=== PATIENT | male | born 1950 | race Caucasian/White ===

== ENCOUNTER 2022-03-02 05:09 | Inpatient (IN) ==
--- NOTE | 2022-02-02 08:46 | History & Physical Report ---
Date of Service February 02, 2022 date of surgery: 03/02/22 Procedure: Right Total Knee Arthroplasty Surgeon: Andi Jara Assessment & Plan (1) Arthritis of right knee: Plan: Risks and benefits of procedure discussed in detail today, patient would like to proceed with a right total knee replacement at [facility] as scheduled. will obtain medical clearance as well as cardiac clearance prior to surgery as well as obtain PATs at [facility]. Will place on Xarelto x 1 month post op, f/u 2 weeks post op for routine post-operative care and x-ray, sooner if having any problems. At this point in time, has failed conservative measures and would like to proceed with surgical intervention. he is not OPJ candidate, has remote cardiac history and lives alone. will need rehab vs SNF at time of discharge. The risks and benefits have been discussed including, but not limited to, risk of infection, nerve injury, stiffness, loss of motion, failure to improve, etc. Reasonable outcomes and options of treatment were discussed. An explanation of appropriate alternatives to the procedure that may be advantageous were discussed and their risks and benefits, as well as the risks and benefits of not proceeding with treatment. I offered to answer any additional inquiries concerning the treatment involved. All the patient's questions were answered. The patient is agreeable, understanding of the treatment plan and alternatives, and wishes to proceed with the treatment plan. History of Present Illness Chief Complaint: Right knee pain Primary Care Provider: NO PCP Ortiz is a 71 year old male who complains of right knee pain, presents for pre- op evaluation prior to a right total knee replacement by Dr Jara at [facility]. He complains of pain, decreased range of motion, instability and stiffness in his right knee. Currently the patient states that the symptoms are moderate-severe and rated as 6/10. The pain is described as aching, sharp and throbbing. The symptoms occur continuously. The symptoms are aggravated by ascending stairs, daily activities, first steps while awake walking. Prior NSAIDs include IBU and Aleve. He has been treated with previous visco and cortisone injections in the past without much relief. Allergies Allergy/AdvReac Type Severity Reaction Status Date / Time No Known Allergies Allergy Verified 10/23/21 07:32 Home Medications Medication Instructions Recorded Confirmed Type aspirin 81 mg tablet,delayed 81 mg PO QAM 10/23/21 10/23/21 History release flaxseed 1,000 mg capsule 1,000 mg PO QAM 10/23/21 10/23/21 History multivitamin 1 tab PO QAM 10/23/21 10/23/21 History omega-3 fatty acids 1,000 mg PO QAM 10/23/21 10/23/21 History psyllium husk 0.4 gram capsule 0.8 g PO QAM 10/23/21 10/23/21 History (Metamucil) simvastatin 40 mg tablet 40 mg PO HS 10/23/21 10/23/21 History Past Med/Surg History Medical History CAD (coronary artery disease) Stents x3 (2012), Follows with Dr. Manny Faria/[facility] Diabetes Hx of blood clots ? DVT vs PE > Post-op knee surgery (07/2020) > was on AC x 1 month Hyperlipidemia Surgical History History of colonoscopy History of heart artery stent Stents x3 (2012) History of lumbar surgery History of total knee replacement Left Hx of inguinal hernia repair Hx of prostate biopsy To receive results on 10/28/21 per pt Social History Smoking Status: Former smoker Second Hand Exposure: No; Hx Alcohol Use: Yes Alcohol type: beer Hx Substance Use: No Preferred Language: Tuvaluan Communication Ability: Effective Software Verification Engineer Required: No Beliefs That Will Affect Care: None Current Living Situation: Alone Feels Safe at Home: Yes Assistive Devices: Glasses Review of Systems Review of Systems: All systems reviewed & are unremarkable except as noted in HPI & below Constitutional: no fever, no chills and no sweats Respiratory: no cough and no dyspnea Cardiovascular: no chest pain, no dyspnea and no orthopnea Gastrointestinal: no abdominal pain, no nausea and no vomiting Musculoskeletal: as per Subjective / HPI Physical Exam Physical Exam: HT: 6 ft WT: 200 lb BP: 154/96 Pulse: 94 Constitutional: WD/WN, vitals as above no acute distress Respiratory: normal respiratory effort, lungs clear to auscultation no respiratory distress, no labored breathing and does not use accessory muscles Cardiovascular: RRR, no murmur, no edema Gastrointestinal (Abdomen): normal bowel sounds, soft, nontender, no hepatosplenomegaly Musculoskeletal: Knee: + knee abnormal to inspection (Right knee: ), + effusion (+1 effusion), + limited ROM of knee (ROM 0/3/110), + knee ROM with crepitation, + joint line tenderness (medial joint line) and + Beulah's sign positive; no deformity, no skin erythema, no ecchymosis, no valgus laxity, no varus laxity, anterior drawer test negative, Rosa's sign negative and pivot shift test negative Results & Data Results & Data ([facility]) Diagnostic Findings Right Knee X-ray: Right knee series showing advanced degenerative changes to the right knee, narrowing of the medial compartment and patello-femoral joint with patellar spurring noted, findings showing joint space narrowing of the medial compartment and patello-femoral joint, osteophyte formation and subchondral sclerosis noted. overall varus alignment. no acute bony pathology noted.
--- NOTE | 2022-02-26 09:44 | Anesthesiology Consultation ---
Date of Service February 26, 2022 Assessment & Plan (1) Encounter for pre-operative examination: - check BSG am DOS. Patient last seen by cardiology 10/28/2021 =recent EKG reviewed.Based on the revised cardiac risk index for preoperative risk (Travon criteria), this patient is class II with perioperative risk of major cardiac event under general anesthesia of 0.9%. I think the patient is at low risk for the proposed procedure. The patient's aspirin can be withheld up to 1 week. The patient's cardiac care has been optimized in anticipation of surgery. 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 Echocardiogram 10-24-2020= normal LV size with increased wall thickness and LVH. LV function 62%. Grade 1 LV diastolic dysfunction. Normal-sized RV and function. Normal size atria and dilated aortic root at 4.3 cm. High suspicion for anterior mitral valve prolapse seen for patient's age. Trace to mild MR. Mild TR. Mild pulmonary hypertension at 37.09 mmHg. Preop PCP clearance 11/03/2021= patient has been cleared by cardiac standpoint by cardiology.History of bilateral PEs with last left TKA in August 2020was treated with Eliquis for 3 months. 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 Declines referral to pulm.Will order preop CXR. Preop testing ordered. Per addendum to PCP note 11/13/21= Hgb A1C 6.8- now consistent with DM. BSG 124. CBC and coags- ok. CXR reviewed.Pt is considered an acceptable risk for proposed procedure.Now with new [id number] 6.8will need close monitoring of BS during pre-, intra and postop periods. History of PE with last knee surgerywill need postop DVT prophylaxistolerated Eliquis well in the past. -Orthopedic Surgery office visit(10/26; Binu Lenz PAC): "he isnotOPJ candidate, has remote cardiac history and lives alone. will need rehab vs SNF at time of discharge." -ASA instructionsper surgeon/prescriber - COVID screening: Per proof inspector on 02/25/2022: Travel screen negative, no known COVID-19 positive contacts or current COVID-19 related symptoms in past 2 weeks. Patient vaccinated. Surgeon arranging preop COVID testing, scheduled 02/26/2022. Awaiting results. Chart Review Chart Review: Acceptable Risk for Surgery and Patient NOT seen in Pre Admission Testing History Surgery Operation Date: 03/02/22 10:45 Proposed Procedures p Total Knee Arthroplasty - Andi Jara DO Surgery re-scheduled since 10/26/2021 anesthesia review. Height/Weight Height: 6 ft Weight: 86.183 kg Allergies Allergy/AdvReac Type Severity Reaction Status Date / Time No Known Allergies Allergy Verified 02/25/22 13:50 Medications Home Medications Medication Instructions Recorded Confirmed Last Taken aspirin 81 mg tablet,delayed 81 mg PO QAM 10/23/21 02/25/22 Unknown release flaxseed 1,000 mg capsule 1,000 mg PO QAM 10/23/21 02/25/22 Unknown multivitamin 1 tab PO QAM 10/23/21 02/25/22 Unknown omega-3 fatty acids 1,000 mg PO QAM 10/23/21 02/25/22 Unknown psyllium husk 0.4 gram capsule 0.8 g PO QAM 10/23/21 02/25/22 Unknown (Metamucil) simvastatin 40 mg tablet 40 mg PO HS 10/23/21 02/25/22 Unknown Past Medical History Medical History (Updated 02/26/22 @ 09:43 by Dinora Viera PA-C) CAD (coronary artery disease) Stents x3 (2012), Follows with Dr. Manny Faria/[facility] Diabetes DIET/EXERCISE MANAGEMENT PER PCP NOTE Hx of blood clots ? DVT vs PE > Post-op knee surgery (07/2020) > was on AC x 1 month Hyperlipidemia Pulmonary hypertension mild, 37 mmHg 2019 echo Tricuspid regurgitation mild on 2019 echo Past Family History Family History Other No known health problems Past Surgical History Surgical History History of colonoscopy History of heart artery stent Stents x3 (2012) History of lumbar surgery History of total knee replacement Left Hx of inguinal hernia repair Hx of prostate biopsy BENIGN Social History Smoking Status: Former smoker Do You Dip or Chew Tobacco: No Smoking End Date: AGE 44 YRS Hx Alcohol Use: Yes Alcohol type: beer alcohol intake frequency: a few times a week Hx Substance Use: No substance use type: does not use Testing Laboratory Results 02/02/2022 WBC: 6.1 H/H: 16/52 PLATELETS: 245 SODIUM: 139 POTASSIUM: 4.4 CHLORIDE: 101 CO2: 28 BUN: 15 CREATININE: 0.7 GLUCOSE: 123 PT: 12 PTT: 32 INR: 1.1 UA: Yellow, hazy, negative HGB A1C: 6.5 Electrocardiogram Date: 10/28/21 sinus rhythm, rate 90 bpm "Old infarction" Unconfirmed report Chest X-Ray Date: 11/04/21 No significant interval change since 09/01/2020. Stable upper lobe predominant pulmonary fibrosis. The lungs appear otherwise clear. Echocardiogram Date: 10/24/20 EF 62% Grade I diastolic dysfunction Mitral valve area 3.2 cm squared with high suspicion for anterior mitral valve prolapse seen for patient's age Trace to mild MR Mild TR Mild pulmonary hypertension at 37 mmHg
[2022-03-02] MEDS ORDERED: CeleBREX 200 MG CAP PO SCH (06:00)
[2022-03-02] MEDS ORDERED: ACETAMINOPHEN 500 MG TAB PO SCH (06:00)
[2022-03-02] MEDS ORDERED: ceFAZolin 2000MG 2,000 MG/15 ML SYR IV SCH (06:00)
[2022-03-02] MEDS ORDERED: LR 500ML BOLUS, THEN 15ML/HR IV SCH (06:00)
[2022-03-02] MEDS ORDERED: FAMOTIDINE 20 MG TAB PO SCH (06:00)
[2022-03-02] MEDS ORDERED: TRANEXAMIC ACID 1,000 MG **IV Pre-op IV SCH (06:00)
[2022-03-02] MEDS ORDERED: dexAMETHasone 4 MG TAB PO SCH (06:00)
[2022-03-02] MEDS ORDERED: GABAPENTIN 300 MG CAP PO SCH (06:00)
[2022-03-02] MEDS ORDERED: ROPIVACAINE 0.5% HCL/PF 150 MG, BUPIVACAINE 0.75% MPF 20 ML, EPINEPHrine 30MG/30ML (OR ... INSTIL SCH (06:00)
[2022-03-02] MEDS ORDERED: oxyCODONE HCL 10 MG TABCR (OxyCONTIN) PO SCH (06:00)
[2022-03-02] MEDS ORDERED: METOCLOPRAMIDE HCL 10 MG TABLET PO SCH (06:00)
[2022-03-02] MEDS ORDERED: TRANEXAMIC ACID 1,000 MG **IV Intra-op IV SCH (06:00)
[2022-03-02] MEDS ORDERED: BUPIVACAINE 0.5 % 5 MG/1 ML PF 10ML VIAL ONE (06:33)
[2022-03-02] MEDS ORDERED: ROPIVACAINE 0.5% 5 MG/ML 30 ML VIAL ONE (06:33)
[2022-03-02] MEDS ORDERED: PROPOFOL IV EMULSION 10 MG/ML 20 ML VIAL IV ONE ×3 (06:41→06:46)
[2022-03-02] MEDS ORDERED: LIDOCAINE 2% 2 ML VIAL/AMP(20MG/ML) INFIL ONE (06:41)
[2022-03-02] MEDS ORDERED: MIDAZOLAM HCL 1 MG/ML 2ML VIAL ONE (06:42)
[2022-03-02] MEDS ORDERED: fentaNYL citrate 100 MCG/2 ML VIAL ONE ×2 (06:42→09:59)
[2022-03-02] MEDS ORDERED: ORTHO JOINT ANESTHETIC ONE (06:56)
[2022-03-02] MEDS ORDERED: ONDANSETRON INJ 2 MG/ML 2 ML VIAL IV PRN ×2 (06:57→10:38)
[2022-03-02] MEDS ORDERED: ATROPINE SULFATE 0.1 MG/ML 10ML SYR IV PRN (06:57)
[2022-03-02] MEDS ORDERED: fentaNYL citrate 100 MCG/2 ML VIAL IV PRN (06:57)
[2022-03-02] MEDS ORDERED: LABETALOL HCL IV 5 MG/ML 20ML IV PRN (06:57)
[2022-03-02] MEDS ORDERED: ePHEDrine sulfate 50 MG/ML AMP IV PRN (06:57)
--- NOTE | 2022-03-02 07:19 | History & Physical Bridge Note ---
Date of Service March 02, 2022 History & Physical Bridge Note I have examined the patient, reviewed the History & Physical and in the interval since the performance of the History & Physical I have noted the following changes of clinical significance: no changes noted
--- NOTE | 2022-03-02 08:32 | Operative Report ---
Post Operative Report Pre & Post Diagnosis Operation Date: 03/02/22 07:15 Pre-Op Diagnosis: Right Knee osteoarthritis Post-Op Diagnosis: Right Knee osteoarthritis I identified the patient and participated in the time-out.: Yes Procedure Operation Date: 03/02/22 07:15 Actual Procedures p Right Total Knee Arthroplasty(Right) utilizing [employer] patient-matched journey 2 total knee arthroplasty size femur 6 tibia 6 polythirteen patella 32 isabel- Andi Jara DO Surgeon Andi Jara DO Commissions Coordinator ÁNGELA Fulton Estimated Blood Loss 5 Findings Consistent with Post-Op Diagnosis Patient presents with severe end-stage tricompartmental DJD with a 10 degree flexion contracture right knee varus alignment subchondral sclerosis marginal osteophytes moderate to large effusion eburnated [id number] varus alignment Specimens Bone and cartilage Drains Medium bore Hemovac Anesthesia Type MAC Spinal Regional Complications none Disposition Accompanied Patient To Recovery: No Disposition: Recovery Room Indications Patient presents with severe end-stage DJD right knee no response to conservative management above intraoperative findings no time surgery patient fell attempt a corticosteroid injection viscosupplementation relative rest activity modification bracing physical therapy. Description of Procedure After proper prepping and draping of the Right lower extremity anterior midline incision was made over the region of the extensor extensor mechanism after meticulous hemostasis was obtained and maintained in subcutaneous tissues a medial parapatellar incision was made The patella was subluxed lateralward the medial lateral gutter were cleaned from any hypertrophic synovitis and scar tissue of the distal femoral block was placed and the distal femoral osteotomy cut was made subsequently the chamfers anterior and posterior osteotomy cuts were made utilizing the 4-in-1 block the tibia was subsequently subluxed anteriorward medial and ateral meniscal remnants were excised in their entirety remnants of the anterior and posterior cruciate ligaments were excised in their entirety excellent exposure of the proximal tibia was obtained the tibial osteotomy guide was placed on the proximal tibial osteotomy cut was made once again the knee was irrigated with copious amounts of sterile saline solution the patella was subsequently everted lateralward thickened scar tissue around the patella was removed the patella was subsequently cut utilizing a freehand technique and was drilled prepared for final preparation and placement of patella socially flexion-extension gaps were checked and the equal and symmetric trials were placed to the appropriate femoral and tibial trials with poly-spacer being placed for equal flexion and extension gaps and full range of motion including extension to 0 and flexion to 140 the trial components after having been taken to recovery range of motion was subsequently removed meticulous hemostasis was obtained and maintained subsequently a knee block injection of joint cocktail including ropivacaine 0.5% 150 mg. Bupivacaine 0.5% epinephrine 1-200,030 mL's toradol 30 mg dexamethasone 4 mg ketamine 10 mg clonidine 100 micrograms normal saline solution 30 mg was infiltrated into the soft tissues of the posterior knee medial lateral gutters and periosteal synovium special attention was paid to protect neurovascular structures at all times subsequently trial components having been removed the knee was irrigated with sterile saline solution. debris was removed the proximal tibia was subsequently prepared and was made ready for the placement of the tibial component tibial component was also cemented and tamped into position the femoral component was subsequently placed and cemented in the position the patellar component was subsequently cemented in position because hemostasis once again obtained and maintained wound having been thoroughly irrigated with debridement and debridement lavage was performed as well as a medial parapatellar incision closed with #1 Vicryl in interrupted fashion subcutaneous was closed with #2 Vicryl skin was closed with skin clips. PA-C was necessary for prepping and drapping as well as wound closure of deep fascia Sub cutaneous tissue and skin and was necessary for the case. A sterile compressive dressing was placed patient was taken to recovery in stable condition of report dictated by Marek I attest to the content of the Intraoperative Record and any orders documented therein. Any exceptions are noted below.Due to the complex nature of the procedure, the entire surgery was performed with the operational assistance of ÁNGELA Johnson The loan officer assistant, under direct supervision, was involved in the actual performance of all aspects of the surgical procedure including hemostasis, tissue retraction and incision, instrument management, patient positioning, and wound closure. I attest to the content of the Intraoperative Record and any orders documented therein. Any exceptions are noted below.
--- NOTE | 2022-03-02 10:06 | XRay Report ---
RIGHT KNEE 2 VIEWS History: Right total knee arthroplasty. Degenerative arthritis. Postop. FINDINGS: The patient is status post a right total knee arthroplasty. The hardware is intact. No frac ture or dislocation. Surgical drains are in place. IMPRESSION: Right total knee arthroplasty. No evidence for hardware complication. ACT 112: Negative or not required by law. Electronically signed by: Issac Newman M.D. 03/02/2022 10:04 AM
--- NOTE | 2022-03-02 10:12 | Anesthesiology Progress Note ---
Date of Service March 02, 2022 Anesthesia Post Procedure Vital Signs Vital Signs: Temp Pulse Pulse Resp BP Pulse Ox 03/02/22 10:00 63 19 133/84 96 03/02/22 09:50 72 20 135/96 96 03/02/22 09:40 69 12 133/79 95 03/02/22 09:30 73 18 129/70 93 03/02/22 09:20 74 20 121/72 97 03/02/22 09:10 77 14 112/71 98 03/02/22 09:04 97.0 F L 59 L 16 118/53 L 95 03/02/22 05:32 97.9 F 87 18 185/91 H 95 Transfer of Care Handoff Completed per policy Notes Mental Status: alert / awake / arousable and participated in evaluation Patient Amnestic to Procedure: Yes Nausea / Vomiting: adequately controlled Pain: adequately controlled Airway Patency, RR, SpO2: stable & adequate BP & HR: stable & adequate Hydration State: stable & adequate Neuraxial Anesthesia: was administered and sensory block is resolving Anesthetic Complications: no major complications apparent and Pt Satisfied with anesthetic care
[2022-03-02] MEDS ORDERED: METOCLOPRAMIDE HCL INJ 5 MG/ML 2 ML VIAL IV PRN (10:38)
[2022-03-02] MEDS ORDERED: MAGNESIUM HYDROXIDE SUSP 30 ML UDC PO PRN (10:38)
[2022-03-02] MEDS ORDERED: bisacodyL 10 MG SUPP PR PRN (10:38)
[2022-03-02] MEDS ORDERED: diphenhydrAMINE Capsule 25 MG CAP PO PRN (10:38)
[2022-03-02] MEDS ORDERED: NALOXONE HCL 0.4 MG/1 ML VIAL/CARP IV PRN (10:38)
[2022-03-02] MEDS ORDERED: HYDROmorphone INJ 1 MG/ML SYRINGE IV PRN (10:38)
[2022-03-02] MEDS ORDERED: oxyCODONE HCL IR 5 MG TAB (IMMEDIATE RELEASE) PO PRN (10:38)
[2022-03-02] MEDS: KETOROLAC TROMETHAMINE 15 MG/ML VIAL IV SCH ×3 (11:22→22:46)
[2022-03-02] MEDS: SODIUM CHLORIDE 0.9% 1000ML 1,000 ML IV SCH ×2 (11:22→21:39)
[2022-03-02] MEDS: ACETAMINOPHEN 500 MG TAB PO SCH ×2 (14:53→22:45)
[2022-03-02] MEDS: ceFAZolin 2000MG 2,000 MG/15 ML SYR IV SCH ×2 (14:59→22:44)
[2022-03-02] MEDS: DOCUSATE SODIUM 100 MG CAP PO SCH (20:45)
[2022-03-02] MEDS ORDERED: SIMVASTATIN 40 MG TAB PO SCH (21:00)
[2022-03-02] MEDS ORDERED: SENNA 8.6 MG TAB PO SCH (21:00)
[2022-03-03] MEDS: ACETAMINOPHEN 500 MG TAB PO SCH ×2 (05:49→13:10)
[2022-03-03] MEDS: KETOROLAC TROMETHAMINE 15 MG/ML VIAL IV SCH (06:00)
[2022-03-03 06:59] LABS: Hematocrit (blood only) 42.3 % (42-52); Mean Corpuscular Hemoglobin 31.8 pg (25-34); Mean Corpuscular Hgb Conc 33.1 g/dL (32-36); Mean Corpuscular Volume 96.1 fL (80-100); Platelet Count 235 K/uL (130-400); RDW Coefficient of Variation 13.5 % (11.5-14.5)
[2022-03-03 07:21] LABS: BUN Creatinine Ratio 27.4 (10-20); Calcium 8.2 mg/dl (8.5-10.1); Creatinine Clr Calc Pharmacy 100.4 ml/min; Est GFR (African American) 107.4 ml/min; Est GFR (Non-African American) 92.7 ml/min; Potassium 4.3 mmol/L (3.5-5.1)
[2022-03-03] MEDS: DOCUSATE SODIUM 100 MG CAP PO SCH (08:43)
[2022-03-03] MEDS ORDERED: RIVAROXABAN 10 MG TABLET PO SCH (09:00)
[2022-03-03] MEDS ORDERED: PSYLLIUM 58.6% POWDER PACKET PO SCH (09:00)
[2022-03-03] MEDS ORDERED: MULTIVITAMIN TAB PO SCH (09:00)
--- NOTE | 2022-03-03 09:22 | Orthopedic Progress Note ---
Date of Service March 03, 2022 Assessment & Plan (1) History of total right knee replacement: Plan: POD #1 s/p Right TKA pt/ot dvt proph with JORGITO/SCD/Xarelto x 1 month CM consult to discuss discharge plans Admission and Anticipated Discharge Date Admission Date: March 02, 2022 Subjective POD #1 s/p Right TKA Review of Systems Constitutional: no fever, no chills and no sweats Respiratory: no cough and no dyspnea Cardiovascular: no chest pain and no dyspnea Gastrointestinal: no abdominal pain, no nausea and no vomiting Physical Exam Physical Exam: Vital Signs Temp 36.6 C 03/03/22 07:52 Pulse 76 03/03/22 07:52 Resp 18 03/03/22 07:52 BP 142/80 H 03/03/22 07:52 Pulse Ox 97 03/03/22 07:52 Intake & Output 03/02/22 03/03/22 03/03/22 18:59 06:59 18:59 Intake Total 1450 / 2450 1000 / 2450 1000 / 1000 Output Total 550 / 2621 2071 / 2621 Balance 900 / -171 -1071 / -171 1000 / 1000 Weight 88.8 kg Intake: IV 200 / 1200 1000 / 1200 1000 / 1000 Lactated Ringe r's 1,000 ml @ 15 0 / 0 mls/hr IV .Q24 H MICHELLE Rx#: [id number] Sodium Chlorid e 0.9% 1000ML 1, 1000 / 1000 1000 / 1000 000 ml @ 100 m ls/hr IV .Q10H MICHELLE Rx#:[id number] Tranexamic Aci d / 0.7% NaCl 1, 200 / 200 000 mg In 100 ml @ 600 mls/hr IV TODAY@0600 MICHELLE Rx#:[id number] IV Perioperative 1250 / 1250 Output: Urine 500 / 2350 1850 / 2350 Drain Output 50 / 270 220 / 270 Right Knee 50 / 270 220 / 270 # Bowel Movement s 1 / Musculoskeletal: Right Leg: NVDI, calf SNT, negative romel sign. DP palpable, able to wiggle toes/ankle movement without difficulty. dressing clean dry and intact. Laboratory Results WBC 13.20 K/uL (4.8-1 0.8) H 03/03/22 06:12 RBC 4.40 M/uL (4.7-6. 1) L 03/03/22 06:12 Hgb 14.0 g/dL (14.0-1 8.0) 03/03/22 06:12 Hct 42.3 % (42-52) 03/03/22 06:12 MCV 96.1 fL (80-100) 03/03/22 06:12 MCH 31.8 pg (25-34) 03/03/22 06:12 MCHC 33.1 g/dL (32-36) 03/03/22 06:12 RDW Std Deviation 48.0 fL (36.4-46. 3) H 03/03/22 06:12 RDW Coeff of Mary 13.5 % (11.5-14.5 ) 03/03/22 06:12 Plt Count 235 K/uL (130-400 ) 03/03/22 06:12 MPV 10.0 fL (7.4-10.4 ) 03/03/22 06:12 Sodium 140 mmol/L (136-1 45) 03/03/22 06:12 Potassium 4.3 mmol/L (3.5-5 .1) 03/03/22 06:12 Chloride 111 mmol/L (98-10 7) H 03/03/22 06:12 Carbon Dioxide 24 mmol/L (21-32) 03/03/22 06:12 Anion Gap 5 (3-11) 03/03/22 06:12 BUN 20 mg/dl (6-23) 03/03/22 06:12 Creatinine 0.73 mg/dl (0.6-1 .4) 03/03/22 06:12 Est Cr Clr Drug Do sing 100.4 ml/min 03/03/22 06:12 Est GFR ( A amanda) 107.4 ml/min 03/03/22 06:12 Est GFR (Non-Af Am er) 92.7 ml/min 03/03/22 06:12 BUN/Creatinine Rat io 27.4 (10-20) H 03/03/22 06:12 Glucose 138 mg/dl (70-99( Fasting)) H 03/03/22 06:12 POC Glucose 139 mg/dl (70-99) H 03/02/22 09:17 Calcium 8.2 mg/dl (8.5-10 .1) L 03/03/22 06:12 SARS-CoV-2, RNA, N AAT NEGATIVE (NEGATI VE) 03/02/22 Unknown Blood Type A Positive 03/02/22 05:24 Antibody Screen NEGATIVE 03/02/22 05:24 Impressions Knee X-Ray 03/02/22 09:09 RIGHT KNEE 2 VIEWS History: Right total knee arthroplasty. Degenerative arthritis. Postop. FINDINGS: The patient is status post a right total knee arthroplasty. The hardware is intact. No fracture or dislocation. Surgical drains are in place. IMPRESSION: Right total knee arthroplasty. No evidence for hardware complication. ACT 112: Negative or not required by law. Electronically signed by: Issac Newman M.D. 03/02/2022 10:04 AM Results & Data ([facility]) Vital Signs (Past 12 Hours) Vital Signs Temp Pulse Pulse Resp BP Pulse Ox 03/03/22 07:52 36.6 C 76 18 142/80 H 97 03/03/22 03:26 36.7 C 78 16 129/72 97 03/02/22 22:02 36.5 C 57 L 16 129/76 92
--- NOTE | 2022-03-03 11:45 | Discharge Summary ---
Date of Service date of discharge: March 03, 2022 date of admission: 03-02-22 Admission HPI Per Admitting Provider Ortiz is a 71 year old male who complains of right knee pain, presents for pre- op evaluation prior to a right total knee replacement by Dr Jara at [facility]. He complains of pain, decreased range of motion, instability and stiffness in his right knee. Currently the patient states that the symptoms are moderate-severe and rated as 6/10. The pain is described as aching, sharp and throbbing. The symptoms occur continuously. The symptoms are aggravated by ascending stairs, daily activities, first steps while awake walking. Prior NSAIDs include IBU and Aleve. He has been treated with previous visco and cortisone injections in the past without much relief. Principal Diagnosis right knee arthritis Discharge Exam Vital Signs Temp 36.6 C 03/03/22 07:52 Pulse 76 03/03/22 07:52 Resp 18 03/03/22 07:52 BP 142/80 H 03/03/22 07:52 Pulse Ox 97 03/03/22 07:52 Intake & Output 03/02/22 03/03/22 03/03/22 18:59 06:59 18:59 Intake Total 1450 / 2450 1000 / 2450 1000 / 1000 Output Total 550 / 2621 2071 / 2621 Balance 900 / -171 -1071 / -171 1000 / 1000 Weight 88.8 kg Intake: IV 200 / 1200 1000 / 1200 1000 / 1000 Lactated Ringer's 1,000 ml @ 15 0 / 0 mls/hr IV .Q24H MICHELLE Rx#: [id number] Sodium Chloride 0.9% 1000ML 1, 1000 / 1000 1000 / 1000 000 ml @ 100 mls/hr IV .Q10H MICHELLE Rx#:[id number] Tranexamic Acid / 0.7% NaCl 1, 200 / 200 000 mg In 100 ml @ 600 mls/hr IV TODAY@0600 MICHELLE Rx#:[id number] IV Perioperative 1250 / 1250 Output: Urine 500 / 2350 1850 / 2350 Drain Output 50 / 270 220 / 270 Right Knee 50 / 270 220 / 270 # Bowel Movements / Constitutional WD/WN, vitals as above no acute distress Musculoskeletal Right knee: NVDI, calf SNT, negative romel sign. DP palpable, able to wiggle toes/ankle movement without difficulty. WANDER dressing clean dry and intact. expected post-operative bruising noted. Discharge Data Allergies Allergy/AdvReac Type Severity Reaction Status Date / Time No Known Allergies Allergy Verified 03/02/22 05:31 Procedures Performed Operation Date: 03/02/22 07:15 Actual Procedures p Right Total Knee Arthroplasty(Right) - Andi Jara DO Ordered Studies 03/02/22 05:00 US - OR guided needle placemen Routine Hospital Course (1) History of total right knee replacement: POD #1 s/p Right TKA pt/ot dvt proph with JORGITO/SCD/Xarelto x 1 month CM consult to discuss discharge plans Total Time Total Time Spent Total Time Spent (In Minutes): 20 Discharge Plan Discharge Items Patient Disposition: Home - Home Health Services Reason For Visit: Right Knee osteoarthritis Discharge Diagnosis: Right total knee replacement Condition on Discharge: Good Activity: Per Instructions section Lifting: Wait until after follow-up appointment Weightbearing Comment: WBAT with walker Non-emergency contact: Surgeon Call non-emergency contact if: you have any medication questions, your temperature is above 101, your wound has increased redness, your wound has increased drainage and your wound pain has increased Follow-up/Referrals: PCP,NO [Primary Care Provider] - Diet: Regular Addtl Attending Provider Instructions: ACTIVITY RECOMMENDATIONS: SELF CARE INSTRUCTIONS AFTER TOTAL KNEE REPLACEMENT A. You may need to continue a physical therapy program after discharge from the hospital. There are several options available to you. Your doctor will assist you in selecting the best one for you. 1. An out-patient facility 2 to 3 times a week for therapy or home therapy. 2. Continue working on all exercises taught to you in the hospital. Your goals should be to increase bending of your knee to 90 degrees and beyond and to fully straighten your knee. B. You may progress at your own pace from walking with a walker or crutches to a cane; then to no assistive devices. C. Make walking a part of your daily routine. Be up as much as comfortable with rest periods throughout the day. Rest with leg elevation is very important. Use the ice wrap frequently for the first 3-4 weeks. D. There are no restrictions on activities. You may ride in a car, shop, participate in retirement plan counselor and all social activities. E. Wear the long elastic stockings (JORGITO hose) 20 hours a day for 2 weeks after surgery. They can be removed several times a day for laundering and for a bath. F. You may shower, no tub baths until cleared by your doctor. SPECIAL CARE INSTRUCTIONS: VERY IMPORTANT TO READ AND REVIEW A. There are a few signs you need to watch for after you are home. Call [facility] if you notice any of the followin. Increased severe knee pain. Some pain is expected especially when you exercise. 2. Increased swelling in your leg or knee; pain or swelling of the calf muscle in either lower leg. 3. Any fluid drainage from the incision. 4. Shortness of breath or chest pain. B. Please call [facility] at if you have any concerns or questions about your operation or recovery. The doctor or his nurse will return your call promptly. C. You must take antibiotics before dental work, bladder, bowel or other surgery. Your doctor will provide you with a permanent care to carry describing this precaution. IMPORTANT: * REMEMBER TO TAKE ASPIRIN, 81 MG, TWICE DAILY FOR 4 WEEKS UNLESS OTHERWISE DIRECTED. THIS IS YOUR BLOOD THINNER. * HIGH RISK PATIENTS MAY BE PRESCRIBED A STRONGER BLOOD THINNER. THIS WILL BE PROVIDED AT DISCHARGE. * CALL IF INCREASED PAIN, REDNESS, DRAINAGE OR FEVER GREATER THAT 101. * WEAR JORGITO HOSE 20 HOURS PER DAY FOR 2 WEEKS. * WANDER Dressing- This is a large suction dressing covering your incision. This will help pull any excess drainage from the wound and allow your incision to heal properly. You may shower with this if you can keep the unit outside of the shower. If any bleeding or leakage is noted please call your doctor's office. This will remain on your incision for 7 days and then should be removed. This can be done yourself or by the home nursing staff if applicable. The entire unit is disposable once removed. Once removed, keep incision clean and dry. If redness or drainage is noted, please call your surgeon. ONCE WANDER IS REMOVED, FOLLOW THESE INSTRUCTIONS: DERMABOND Prineo- This is a mesh tape dressing that is covered with glue. It should remain in place until the incision is properly healed, usually 10-14 days. This dressing is designed to naturally slough off. You may trim the excess mesh tape as it peels off. Incision may be briefly wet in a shower. Dry immediately by blotting with a clean, dry towel. Do not bath or swim until instructed by your doctor. Do not scratch, rub, or pick at the dressing. Do not apply any topical ointments or lotions until dressing is completely removed and/or instructed by your doctor. There may be a small piece of suture material at one end of your incision. Do not pull or trim this. If it is bothersome or catching on clothing, you may cover it with a band-aid. IF INCISION IS LEAKING THROUGH DRESSING, CALL THE OFFICE . FOLLOW UP VISIT: If appointment is not already scheduled: Please call [facility] to make a follow-up appointment for 2 weeks after your surgery at . Pending Studies at Discharge: No Stand-Alone Forms: [facility], Smoking Cessation Medications and DC Order Prescriptions: New Xarelto 10 mg Tablet 10 mg PO DAILY 28 Days Qty: 28 RF: 0 acetaminophen [Tylenol Extra Strength] 500 mg Tablet 1,000 mg PO Q8 21 Days Qty: 126 RF: 0 oxycodone 5 mg Tablet 5 - 10 mg PO Q6H PRN (Reason: pain) Qty: 30 RF: 0 docusate sodium 100 mg Capsule 100 mg PO BID 10 Days Qty: 20 RF: 0 cefadroxil 500 mg capsule 500 mg PO BID 14 Days Qty: 28 RF: 0 Continued multivitamin Tablet 1 tab PO QAM RF: 0 simvastatin 40 mg Tablet 40 mg PO HS RF: 0 psyllium husk [Metamucil] 0.4 gram Capsule 0.8 g PO QAM RF: 0 Discontinued aspirin [Aspir-81] 81 mg Tablet,Delayed Release (Dr/Ec) 81 mg PO QAM RF: 0 Fish Oil Capsule 1,000 mg PO QAM RF: 0 flaxseed 1,000 mg Capsule 1,000 mg PO QAM RF: 0 Discharge Orders: Discharge Order (Routine); Ordered 03/03/22 Ordered By: Binu Lenz Admission Data Admit Date/Time: 03/02/22 09:09 Attending Provider: Andi Jara Admit Provider: Andi Jara Primary Care Provider: PCP,MARY
== END 2022-03-03 14:40 | disposition home health service (06) | DRG 470 ==
LOC: 3E 05:09 → ASU 05:09 → OBSVTOIN 09:09